=== PATIENT | female | born 1970 | race Caucasian/White ===

== ENCOUNTER 2017-09-11 18:29 | Emergency (ER) | payer OTHER, SELFPAY ==
[2017-09-11 18:36] VITALS: BP 129/82; PULSE 97; RESP 16; TEMP 36.1; O2SAT 98; BMI 42.5
--- NOTE | 2017-09-11 18:39 | DI.RAD.S_ITS ---
PROCEDURE: XR CHEST 2V INDICATIONS: coughing x 3 weeks TECHNIQUE: 2 views of the chest were acquired. COMPARISON: None. FINDINGS: Surgical changes and devices: None. Lungs and pleura: No pleural effusions or pneumothorax. Lungs are clear. Mediastinum: Mediastinal contours are normal. Heart size is normal. Bones and chest wall: No suspicious bony abnormalities. Soft tissues appear unremarkable. IMPRESSION: 1. No acute cardiopulmonary disease. Dictated by: Nixon Orona M.D. on 09/11/2017 at 20:10 Approved by: Nixon Orona M.D. on 09/11/2017 at 20:11
--- NOTE | 2017-09-11 20:05 | ED_ITS ---
HPI - URI/Sore Throat <Loraine Taylor PA-C - Last Filed: 09/11/17 22:27> General Chief Complaint: Upper Respiratory Symptoms Stated Complaint: HEAD COLD, CHEST PRESSURE Time Seen by Provider: 09/11/17 20:03 Source: patient Mode of arrival: ambulatory Limitations: no limitations History of Present Illness HPI Narrative: This generally healthy 47-year-old patient complains of respiratory symptoms for the last few days. She states that initially she thought this was a simple head cold with congestion and sinus pressure, then began to have sore throat and swollen glands in her neck. Today, she states her chest has felt heavy and congestion and she has had a lot of fatigue. This feels like the onset of her previous pneumonia and she has to travel later this week so thought she needed to have this checked out. Her PCP was unable to see her and sent her here. She denies any fever. She denies any dyspnea, wheeze, or chest pain. She states that her cough has been dry. She was exposed to an ill family member last week who had similar symptoms and is being treated for bacterial infection. Related Data Home Medications Medication Instructions Recorded Confirmed amitriptyline 10 mg PO HS #0 04/26/17 Previous Rx's Medication Instructions Recorded meloxicam [Mobic] 7.5 mg PO BIDCC PRN #20 tab 04/26/17 amoxicillin-pot clavulanate 1 tab PO Q12H #20 tab 09/11/17 [Augmentin] Allergies Allergy/AdvReac Type Severity Reaction Status Date / Time No Known Drug Allergies Allergy Verified 09/11/17 20:39 Review of Systems <Loraine Taylor PA-C - Last Filed: 09/11/17 22:27> Review of Systems All systems reviewed & are unremarkable except as noted in HPI and below Exam <ZARIA Vieira Last Filed: 09/11/17 22:27> Initial Vital Signs Initial Vital Signs: Vital Signs Temperature 97.0 F L 09/11/17 18:36 Pulse Rate 97 H 09/11/17 18:36 Respiratory Rate 16 09/11/17 18:36 Blood Pressure 129/82 H 09/11/17 18:36 Pulse Oximetry 98 09/11/17 18:36 GENERAL APPEARANCE: Patient sitting comfortably, in no distress. HEAD: Localized left maxillary tenderness EYES: PERRL, EOMI. EARS: Normal auditory canals, TMS intact with normal light reflexes. ORAL CAVITY: Normal oropharynx. THROAT: Mild erythema, no exudate NECK/THYROID: Neck supple, full range of motion, shoddy anterior cervical lymphadenopathy. LUNGS: Clear to auscultation bilaterally, clear to percussion, no cough on exam. HEART: RRR without murmur, nl S1, S2, no S3 or S4. EXTREMITIES: No edema, no calf tenderness <Gerry Murdock DO - Last Filed: 09/12/17 02:29> Initial Vital Signs Initial Vital Signs: Vital Signs Temperature 97.0 F L 09/11/17 18:36 Pulse Rate 97 H 09/11/17 18:36 Respiratory Rate 16 09/11/17 18:36 Blood Pressure 129/82 H 09/11/17 18:36 Pulse Oximetry 98 09/11/17 18:36 Course <Loraine Taylor PA-C - Last Filed: 09/11/17 22:27> Orders Ordered: ED Orders 09/11/17 18:39 XR chest 2V Stat Discontinued Medications Amoxicillin/Clavulanate Potassium (Augmentin 875-125 Mg) 1 tab PO NOW ONE Stop: 09/11/17 20:38 Last Admin: 09/11/17 20:47 Dose: 1 tab Vital Signs - 8 hr 09/11/17 18:36 09/11/17 20:50 Temperature 97.0 F L Pulse Rate 97 H 96 H Respiratory Rate 16 17 Blood Pressure 129/82 H Blood Pressure [Right Arm] 118/82 H Pulse Oximetry 98 97 <Gerry Murdock DO - Last Filed: 09/12/17 02:29> Orders Ordered: ED Orders 09/11/17 18:39 XR chest 2V Stat Discontinued Medications Amoxicillin/Clavulanate Potassium (Augmentin 875-125 Mg) 1 tab PO NOW ONE Stop: 09/11/17 20:38 Last Admin: 09/11/17 20:47 Dose: 1 tab Vital Signs - 8 hr 09/11/17 18:36 09/11/17 20:50 Temperature 97.0 F L Pulse Rate 97 H 96 H Respiratory Rate 16 17 Blood Pressure 129/82 H Blood Pressure [Right Arm] 118/82 H Pulse Oximetry 98 97 MDM - URI/Sore Throat <Loraine Taylor PA-C - Last Filed: 09/11/17 22:27> Imaging Data Chest x-ray: Radiologist's impression: View Report History [address] [address] XRay Report Signed Patient: Melinda Cheney MR#: [id number] : 1970 Acct:[id number] Age/Sex: 47 / F Date of Service: 09/11/17 Loc: ED Accession Number: [id number] Procedure: XR chest 2V Ordering Provider: Gerry Murdock D.O. PROCEDURE: XR CHEST 2V INDICATIONS: coughing x 3 weeks TECHNIQUE: 2 views of the chest were acquired. COMPARISON: None. FINDINGS: Surgical changes and devices: None. Lungs and pleura: No pleural effusions or pneumothorax. Lungs are clear. Mediastinum: Mediastinal contours are normal. Heart size is normal. Bones and chest wall: No suspicious bony abnormalities. Soft tissues appear unremarkable. IMPRESSION: 1. No acute cardiopulmonary disease. Dictated by: Nixon Orona M.D. on 09/11/2017 at 20:10 Approved by: Nixon Orona M.D. on 09/11/2017 at 20:11 Discharge Plan Departure Patient Disposition: Home, Self-Care Clinical Impression: Sinusitis, acute maxillary Discharge Date/Time: 09/11/17 21:18 Interventions: ED Discharge Assessment Last Done: 09/11/17 21:17 Instructions: DI for Sinusitis Activity Restrictions/Additional Instructions: Return if you have acutely worsening symptoms, and see your PCP if you are not getting better in the next week. You can take Sudafed as needed for congestion and gcni-maj-iobhpkx antihistamine to help with postnasal drip if desired. You may also wish to add some guaifenesin to help thin your chest mucus. 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 I have sent this electronically to your pharmacy Prescriptions: New amoxicillin-pot clavulanate [Augmentin] 875-125 mg tablet 1 tab PO Q12H Qty: 20 RF: 0 No Action amitriptyline 25 MG tablet 10 mg PO HS Qty: 0 RF: 0 meloxicam [Mobic] 7.5 MG tablet 7.5 mg PO BIDCC PRNQty: 20 RF: 0 Referrals: [facility] [Provider Group] <Gerry Murdock, DO - Last Filed: 09/12/17 02:29> Cosign ED Attending Jazmin Attestation: I was immediately available in the department for consultation. Documentation has been reviewed. I agree with assessment and plan.
[2017-09-11] MEDS: AMOXICILLIN/CLAV 875/125 MG 1 TAB PO (20:47)
[2017-09-11 20:50] VITALS: BP 118/82; PULSE 96; RESP 17; O2SAT 97
== END 2017-09-11 21:18 | disposition home or self-care (01) ==
PROVIDERS: Emergency Provider Internal Medicine
DX: J01.00 Acute maxillary sinusitis, unspecified (principal)
CPT/HCPCS: 71046; 99282; 99283

== ENCOUNTER 2018-08-12 20:15 | Emergency (ER) | payer OTHER, SELFPAY ==
[2018-08-12 20:19] VITALS: BP 139/90; PULSE 93; RESP 16; TEMP 37.2; O2SAT 100; BMI 41.8
[2018-08-12 21:38] LABS: Bacteria Urine Many (>30); Culture Indicated Urine Specimen Cultured; RBC Urine 1-5/HPF (0-5/HPF); Squamous Epithelial Cell Urine 1-5 /HPF (0-5/HPF); WBC Urine 30-100/HPF (0-5/HPF)
[2018-08-12 22:56] VITALS: BP 116/67; PULSE 88; RESP 16; TEMP 36.7; O2SAT 97
--- NOTE | 2018-08-12 23:17 | ED_ITS ---
HPI - Female Genitourinary General Chief complaint: Urogenital-Female Stated complaint: UTI Time Seen by Provider: 08/12/18 23:16 Source: patient Mode of arrival: ambulatory Limitations: no limitations History of Present Illness HPI Narrative: Patient is a 48-year-old female who presents with bilateral flank pain. She says it started 5 days ago she thought she had a UTI. Painful frequent urination. She has had some abdominal discomfort some body aches and chills as well. Her flanks are now also hurting. He is afebrile here. Overall able to keep in fluids. MD Complaint: UTI Female Urogenital Radiation: L Flank, R Flank and Suprapubic Related Data Home Medications Medication Instructions Recorded Confirmed amitriptyline 10 mg PO HS #0 04/26/17 Previous Rx's Medication Instructions Recorded meloxicam [Mobic] 7.5 mg PO BIDCC PRN #20 tab 04/26/17 amoxicillin-pot clavulanate 1 tab PO Q12H #20 tab 09/11/17 [Augmentin] sulfamethoxazole-trimethoprim 1 tab PO BID #14 tab 08/12/18 [Bactrim DS] Allergies Allergy/AdvReac Type Severity Reaction Status Date / Time No Known Drug Allergies Allergy Verified 09/11/17 20:39 Review of Systems Review of Systems ROS Unobtainable: All systems reviewed & are unremarkable except as noted in HPI and below Constitutional Denies chills, Denies fever(s), Denies lethargy and Denies weakness Eyes Denies change in vision, Denies eye discharge, Denies irritation and Denies loss of vision ENT Ears, Nose, Mouth, and Throat: Denies change in voice, Denies neck pain and Denies sore throat Cardiovascular Denies chest pain, Denies irregular heart rhythm, Denies lightheadedness, Denies palpitations, Denies dyspnea, Denies dyspnea on exertion and Denies orthopnea Respiratory Denies cough, Denies dyspnea, Denies dyspnea on exertion and Denies wheezing Genitourinary Reports as per HPI Musculoskeletal Denies neck pain Integumentary/Breasts Denies pruritus, Denies erythema, Denies rash and Denies wounds Neurologic Denies confusion, Denies loss of vision and Denies weakness Psychiatric Denies anxiety, Denies confusion, Denies depression, Denies homicidal ideation and Denies suicidal ideation Endocrine Denies palpitations Allergic/Immunologic Denies wheezing PFSH Medical History Healthy female (Chronic) Social History (Updated 09/11/17 @ 20:35 by Loraine Taylor PA-C) Smoking Status: Former smoker substance use type: does not use Social History Smoking Status: Former smoker substance use type: does not use Exam Initial Vital Signs Initial Vital Signs: Vital Signs Temperature 98.9 F 08/12/18 20:19 Pulse Rate 93 H 08/12/18 20:19 Respiratory Rate 16 08/12/18 20:19 Blood Pressure 139/90 08/12/18 20:19 Pulse Oximetry 100 08/12/18 20:19 GENERAL: Well-appearing, well-nourished and in no acute distress. HEENT: Head atraumatic,EOMI, pupils reactive, face symmetric, moist mucous membranes CARDIOVASCULAR: Regular rate and rhythm without murmurs, rubs or gallops. RESPIRATORY: Breath sounds equal bilaterally, no wheezes rales or rhonchi. ABDOMEN: Soft, nontender. Normoactive bowel sounds all 4 quadrants. No guarding or rebound. : Bilateral flank pain EXTREMITIES: Normal range of motion, no clubbing or edema. Neurovascularly intact NEUROLOGICAL: Alert and oriented x4.Normal gait and speech. Cranial nerves II through XII grossly intact. SKIN: Warm, dry, no laceration, no petechiae, no rashes or lesions. Course Orders Ordered: ED Orders 08/12/18 20:20 Urine Culture Stat Urine Microscopic Stat 08/12/18 23:30 Test Urine Stat Discontinued Medications Trimethoprim/Sulfamethoxazole (Bactrim Ds Prepack) 1 bottle MISC SEEINSTR ONE Stop: 08/12/18 23:42 Last Admin: 08/12/18 23:50 Dose: 1 bottle Vital Signs - 8 hr 08/12/18 20:19 08/12/18 22:56 Temperature 98.9 F 98.0 F Pulse Rate 93 H 88 Respiratory Rate 16 16 Blood Pressure 139/90 Blood Pressure [Right Arm] 116/67 Pulse Oximetry 100 97 MDM - Female Genitourinary Lab Data Attestation: I reviewed the patient's lab results. Lab Results 08/12/18 08/12/18 Range/Units 20:20 23:30 Urine RBC 1-5/hpf (0-5/HPF) Urine WBC 30-100/hpf H (0-5/HPF) Ur Squamous Epith Cells 1-5 /hpf (0-5/HPF) Urine Bacteria Many (>30) H (None) Ur Culture Indicated? Specimen cultured Urine Test Negative (Negative) Urine Dip Bedside Urine Glucose Negative Bedside Urine Bilirubin - Negative Bedside Urine Ketone - Negative Urine Specific [place] 1.015 Bedside Urine Occult Blood +/- Bedside Urine pH 6.0 Bedside Urine Protein +/- 15 Bedside Urine Urobilinogen +/- 1mg Bedside Urine Nitrite + Positive Bedside Urine Leukocytes +++ 500 Esterase MDM Narrative Medical decision making narrative: Patient overall is not septic. Looks well. Afebrile normal vitals. At this time start oral antibiotic. Discharge Plan Departure Patient Disposition: Home Clinical Impression: Urinary tract infection Qualifiers: Urinary tract infection type: acute pyelonephritis Qualified Code(s): N10 - Acute pyelonephritis Discharge Date/Time: 08/12/18 23:55 Interventions: ED Discharge Assessment Last Done: 08/12/18 23:50 Instructions: DI for Kidney Infection Activity Restrictions/Additional Instructions: *You have been diagnosed with kidney infection, UTI *What to do: Increased fluid intake *Continue to take medications as directed --> SENT TO [facility] Bactrim 1 tablet twice a day for 7 days *Follow up with your primary care provider in 2-3 days *Return to ER if you should have inability to take antibiotics, worsening pain, persistent nausea or vomiting or any new, worsening or concerning symptoms Prescriptions: New sulfamethoxazole-trimethoprim [Bactrim DS] 800-160 mg tablet 1 tab PO BID Qty: 14 RF: 0 No Action amitriptyline 25 MG tablet 10 mg PO HS Qty: 0 RF: 0 meloxicam [Mobic] 7.5 MG tablet 7.5 mg PO BIDCC PRNQty: 20 RF: 0 amoxicillin-pot clavulanate [Augmentin] 875-125 mg tablet 1 tab PO Q12H Qty: 20 RF: 0 Referrals: Luis Silveira PA-C [Primary Care Provider] -
[2018-08-12 23:35] LABS: Pregnancy Test Urine Negative (Negative)
[2018-08-12] MEDS: TRIMETH/SULFA 160/800 PREPACK 1 BOTTLE MISC (23:50)
== END 2018-08-12 23:55 | disposition home or self-care (01) ==
PROVIDERS: Emergency Provider Emergency Medicine; PCP Physician Assistant
DX: N10 Acute pyelonephritis (principal)
CPT/HCPCS: 81003; 81015; 81025; 87077; 87086; 87186; 99282; 99283

== ENCOUNTER 2019-01-05 09:40 | Emergency (ER) | payer OTHER, SELFPAY ==
[2019-01-05 09:45] VITALS: BP 133/80; PULSE 76; RESP 18; TEMP 37; O2SAT 100; BMI 39.2
--- NOTE | 2019-01-05 09:50 | DI.RAD.S_ITS ---
PROCEDURE: XR FOOT LT MIN 3V INDICATIONS: L dorsal foot pain TECHNIQUE: 3 views of the foot were acquired. COMPARISON: None. FINDINGS: Bones: No fractures or dislocations. No suspicious bony lesions. There is a plantar calcaneal spur. Soft tissues: No tibiotalar joint effusion. Soft tissue swelling on the dorsal aspect of the foot is evident. IMPRESSION: No acute fractures of the left foot. Dictated by: Bernard Nick M.D. on 01/05/2019 at 9:11 Approved by: Bernard Nick M.D. on 01/05/2019 at 9:12
--- NOTE | 2019-01-05 11:18 | ED_ITS ---
HPI - Extremity Problem <HATTIE Argueta - Last Filed: 01/05/19 14:38> General Chief complaint: Extremity Problem,Nontraumatic Stated complaint: Lump on left foot Time Seen by Provider: 01/05/19 11:02 Source: patient Mode of arrival: Ambulatory Limitations: no limitations History of Present Illness HPI Narrative: The patient is a 48-year-old female former smoker with history of obesity who presents for chief complaint of a lump on her left foot. She has noticed this on the top of her foot starting back in August. Used to coming go, now it has been consistent. She complains of pressure, and pain. Worsened by activity, better with rest. She states that the pain radiates down into her toes. She denies any overlying erythema. She has an appointment with Podiatry on the of this month. She has seen her primary care provider for this, who referred her to Podiatry. She denies any specific trauma twisting or falls. She states that is worsened by exercising on the treadmill. She has not tried any other exercise machines. She has tried ibuprofen. The patient states that she is upset that she has to wait until the of this month to see Podiatry, so she came to the emergency department for evaluation prior. Related Data Home Medications Medication Instructions Recorded Confirmed amitriptyline 10 mg PO HS #0 04/26/17 Previous Rx's Medication Instructions Recorded meloxicam [Mobic] 7.5 mg PO BIDCC PRN #20 tab 04/26/17 amoxicillin-pot clavulanate 1 tab PO Q12H #20 tab 09/11/17 [Augmentin] sulfamethoxazole-trimethoprim 1 tab PO BID #14 tab 08/12/18 [Bactrim DS] Allergies Allergy/AdvReac Type Severity Reaction Status Date / Time No Known Drug Allergies Allergy Verified 08/13/18 08:56 Review of Systems <HATTIE Argueta - Last Filed: 01/05/19 14:38> Review of Systems Narrative: GENERAL: Denies chills, fatigue, malaise, fever, sweats. HEENT: Denies sinus pain, ear pain, sore throat, difficulty swallowing, dizziness. RESPIRATORY: Denies dyspnea, cough, wheezing, hemoptysis, sputum. CARDIOVASCULAR: Denies chest pain, palpitations, orthopnea, edema, GASTROINTESTINAL: Denies nausea, vomiting, abdominal pain, diarrhea, constipation, melena. : Denies dysuria, frequency, incontinence, hematuria, urinary retention. MUSCULOSKELETAL: See HPI SKIN: Denies rash, skin lesions, or other NEUROLOGIC: Denies weakness, headache, numbness, change in speech, confusion, seizures, incoordination. PSYCHIATRIC: No concerning psychosocial issues. 12 point review of systems is negative except for those stated above Patient History <HATTIE Argueta - Last Filed: 01/05/19 14:38> Medical History Healthy female (Chronic) Social History Smoking Status: Former smoker substance use type: does not use alcohol intake frequency: 0-2 drinks per day Substance Use Type: does not use Exam <HATTIE Argueta - Last Filed: 01/05/19 14:38> Narrative Exam Narrative: GENERAL: This is a well-nourished, well-developed patient, in no acute distress HEAD: Atraumatic. Normocephalic. No temporal or scalp tenderness. EYES: Pupils equal round and reactive. Extraocular motions intact. No scleral icterus. No injection or drainage. ENT: Nose without bleeding, purulent drainage or septal hematoma. Throat without erythema, tonsillar hypertrophy or exudate. Uvula midline. Airway patent. NECK: Trachea midline. No JVD or lymphadenopathy. Supple, nontender, no meningeal signs. CARDIOVASCULAR: Regular rate and rhythm RESPIRATORY: No cough. No increased respiratory effort. No accessory muscle use. EXTREMITIES: Slight swelling noted on dorsum of left foot over navicular. Positive pedal pulses. Using all toes. Cap refill less than 2 seconds. BACK: Nontender without deformity or crepitance. No flank tenderness. NEURO: AOx3. Clear speech. No gross cranial nerve deficit. SKIN: No rash or erythema on visible skin. No erythema or ecchymosis noted over left foot. Initial Vital Signs Initial Vital Signs: Vital Signs Temperature 98.6 F 01/05/19 09:45 Pulse Rate 76 01/05/19 09:45 Respiratory Rate 18 01/05/19 09:45 Blood Pressure 133/80 11/03/19 09:45 Pulse Oximetry 100 01/05/19 09:45 <Teena Mcguire MD - Last Filed: 01/05/19 17:02> Initial Vital Signs Initial Vital Signs: Vital Signs Temperature 98.6 F 01/05/19 09:45 Pulse Rate 76 01/05/19 09:45 Respiratory Rate 18 01/05/19 09:45 Blood Pressure 133/80 01/05/19 09:45 Pulse Oximetry 100 01/05/19 09:45 Course <HATTIE Argueta - Last Filed: 01/05/19 14:38> Orders Ordered: ED Orders 01/05/19 09:50 XR foot LT min 3V Stat Vital Signs Vital signs: Vital Signs - 8 hr 01/05/19 09:45 01/05/19 11:25 Temperature 98.6 F Pulse Rate 76 67 Respiratory Rate 18 18 Blood Pressure 133/80 130/80 Pulse Oximetry 100 100 <Teena Mcguire MD - Last Filed: 01/05/19 17:02> Orders Ordered: ED Orders 01/05/19 09:50 XR foot LT min 3V Stat Vital Signs Vital signs: Vital Signs - 8 hr 01/05/19 09:45 01/05/19 11:25 Temperature 98.6 F Pulse Rate 76 67 Respiratory Rate 18 18 Blood Pressure 133/80 130/80 Pulse Oximetry 100 100 MDM - Extremity (Nontraumatic) <HATTIE Argueta - Last Filed: 01/05/19 14:38> Imaging Data Foot x-ray: Radiologist's impression: [address] [address] XRay Report Signed Patient: Melinda Cheney [facility]#: [id number] : 1970Acct:[id number] Age/Sex: 48 / FDate of Service: 01/05/19 Loc: ED Accession Number: [id number] Procedure: XR foot LT min 3V Ordering Provider: Teena Mcguire MD PROCEDURE: XR FOOT LT MIN 3V INDICATIONS: L dorsal foot pain TECHNIQUE: 3 views of the foot were acquired. COMPARISON: None. FINDINGS: Bones: No fractures or dislocations. No suspicious bony lesions. There is a plantar calcaneal spur. Soft tissues: No tibiotalar joint effusion. Soft tissue swelling on the dorsal aspect of the foot is evident. IMPRESSION: No acute fractures of the left foot. Dictated by: Bernard Nick M.D. on 01/05/2019 at 9:11 Approved by: Bernadr Nick M.D. on 01/05/2019 at 9:12 MDM Narrative Medical decision making narrative: The patient is a 48-year-old female who p resents with a chief complaint of left foot pain that has been going on and off since August. She has an upcoming appointment with Podiatry, but wanted to make sure that there is no fracture. X-ray illustrate no fracture. She does have some swelling on exam, possibly a cyst. I did offer prescription anti- inflammatories, which she declined. I discussed at length rest ice compression elevation as well as fkwn-[id number] pain medications as needed and able. Suggested possible compression wrap to evaluate if that helps. Encouraged use of lower impact exercise equipment such as stationary bike. Patient has no questions or concerns upon discharge and states understanding of return precautions of acute concerns as well as follow-up care. 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 As I discussed, your x-ray shows no acute fracture. This does not rule out a soft tissue injury such as a ligament or tendon injury. It is important that you follow up with primary care provider, especially if worsening or no improvement. There can be fractures that did not show up on initial x-ray. Please use rest ice compression elevation. I suggest continued [id number]-myx-[id number] medications as needed and able. There is no evidence of bone spur at the location of her pain and swelling Please monitor for decreased circulation to her foot. Please come back to the emergency department for any acute concerns. Prescriptions: No Action amitriptyline 25 MG tablet 10 mg PO HS Qty: 0 RF: 0 meloxicam [Mobic] 7.5 MG tablet 7.5 mg PO BIDCC PRNQty: 20 RF: 0 amoxicillin-pot clavulanate [Augmentin] 875-125 mg tablet 1 tab PO Q12H Qty: 20 RF: 0 sulfamethoxazole-trimethoprim [Bactrim DS] 800-160 mg tablet 1 tab PO BID Qty: 14 RF: 0 Referrals: Luis Silveira PA-C [Primary Care Provider] - [place] Pina DPM [Physician] -
[2019-01-05 11:25] VITALS: BP 130/80; PULSE 67; RESP 18; O2SAT 100
== END 2019-01-05 11:25 | disposition home or self-care (01) ==
PROVIDERS: Emergency Provider Nurse Practitioner Family; PCP Physician Assistant
DX: M79.672 Pain in left foot (principal); E66.9 Obesity, unspecified; Z68.39 Body mass index [BMI] 39.0-39.9, adult
CPT/HCPCS: 73630; 99282; 99283

== ENCOUNTER → 2019-08-08 16:08 | Outpatient (CLI) | payer OTHER, SELFPAY ==
--- NOTE | 2019-08-08 16:11 | DI.MRI.S_ITS ---
PROCEDURE: MR ANKLE LT WO/W CON INDICATIONS: GANGLION,LEFT ANKLE AND FOOT TECHNIQUE: Noncontrast sagittal T1 spin echo and T2 fast spin echo with fat saturation, axial proton density fast spin echo and T2 fast spin echo with fat saturation, axial T1 spin echo with fat saturation, coronal T1 spin echo and T2 fast spin echo with fat saturation through the ankle/hindfoot. Post-contrast axial, coronal, and sagittal T1 spin echo with fat saturation through the ankle/hindfoot. COMPARISON: [facility], CR, XR FOOT 3+ VIEWS LEFT, 04/28/2019, 8:50. FINDINGS: Image quality: There is mildly inhomogeneous fat saturation. Bones and joints: No bone marrow contusions or fractures. No suspicious osseous enhancement. No hindfoot coalitions. There is moderate degeneration of the 2nd tarsometatarsal joint with cartilage thinning, mild osteophytosis, and small foci of subchondral edema. No osteochondral injuries of the talar dome. No pathologic joint effusions. Medial structures: The posterior tibialis, flexor digitorum longus, and flexor hallucis longus tendons are intact. The posterior tibial neurovascular bundle appears normal within the tarsal tunnel, without extrinsic mass effect. The deltoid and spring ligament components appear intact. Lateral structures: The anterior talofibular, calcaneofibular, and posterior talofibular ligaments appear intact. More superiorly, the anterior and posterior tibiofibular ligaments appear intact, as is the intermalleolar ligament. The tibiofibular syndesmosis is normal in width at 2 mm or less. The peroneus longus and brevis tendons demonstrate normal location and morphology. Adjacent bony peroneal tubercle and retrotrochlear prominence are normal in size. The sinus tarsi demonstrates normal fatty signal, without edema, fibrosis, or cyst formation. The calcaneonavicular and calcaneocuboid components of the bifurcate ligament appear intact. The dorsal calcaneocuboid ligament appears intact. Anterior structures: There is a dorsal cutaneous marker in the mid foot between the 1st and 2nd metatarsals. There is mild adjacent subcutaneous edema and enhancement in the area of clinical concern likely representing postsurgical changes. Within this region, there is a small lobulated cystic lesion measuring approximately 0.6 x 0.3 x 0.4 cm between the adjacent dorsal vascular structures. This cyst demonstrates no associated internal enhancement upon contrast administration. The tibialis anterior, extensor hallucis longus, and extensor digitorum longus tendons appear intact. The dorsal talonavicular ligament appears intact. Posterior and plantar structures: Achilles tendon is intact. Medial and lateral bands of the plantar fascia are of normal thickness. No abductor digiti quinti muscle atrophy to suggest Moser neuropathy. IMPRESSION: 1. Small lobulated cyst without definite associated enhancement demonstrated in the surgical bed in the area of clinical concern likely represents a small residual or recurrent ganglion cyst. A postsurgical fluid collection such as a seroma or abscess are in the differential. 2. Mild subcutaneous edema and enhancement in the surgical bed likely represents postsurgical changes and scarring but infection cannot be excluded. Correlation is recommended clinically. Dictated by: Nixon Orona M.D. on 08/11/2019 at 9:25 Approved by: Nixon Orona M.D. on 08/11/2019 at 9:48
== END ==
PROVIDERS: PCP Physician Assistant; Referring Provider Podiatrist; Visit Provider Podiatrist
DX: M67.472 Ganglion, left ankle and foot (principal)
CPT/HCPCS: 73723; A9579

== ENCOUNTER → 2019-11-11 11:21 | Outpatient (CLI) | payer OTHER, SELFPAY ==
[2019-11-12 07:54] LABS: COVID19 Sendout Not Detected (Not Detect)
== END ==
PROVIDERS: PCP Physician Assistant; Visit Provider Nurse Practitioner
DX: Z11.59 Encounter for screening for other viral diseases (principal)
CPT/HCPCS: 87635

== ENCOUNTER 2019-11-14 06:38 | Day surgery (SDC) | payer OTHER, SELFPAY ==
[2019-11-13 08:29] VITALS: BMI 41.0
[2019-11-14 07:10] VITALS: BP 131/90; PULSE 84; RESP 16; TEMP 36.4; O2SAT 97; BMI 43.2
[2019-11-14] MEDS: LACTATED RINGERS 1,000 ML 100 ML IV (07:15)
--- NOTE | 2019-11-14 07:44 | PM.PREOP ---
Pre-operative Note COVID-19 COVID-19 status: Negative Interval Note History & Physical reviewed/Exam performed by Physician: Yes Changes to H&P: No
[2019-11-14] MEDS: CEFAZOLIN 2 GM/100 ML FROZ.PIGGY IV (07:45)
--- NOTE | 2019-11-14 07:45 | PM.OP.1 ---
Operative Date/Time/Diagnoses Date of procedure: 11/14/19 Time of procedure: 07:46 Pre-op diagnosis: Left foot soft tissue mass, suspect recurrent ganglion cyst Post-op diagnosis: same Procedure & Clinicians Procedure: Left foot ganglion cyst excision Same procedure as scheduled: Yes Indications: Painful recurrent enlargement of the dorsal left foot suspected to be a ganglion cyst. Conservative measures failed to alleviate her pain and she wished to have surgical intervention at this time. Surgeon: Hannah Luciano Click Yes if Unassisted: Yes Anesthesia Type: General Operative Notes Closure Type: primary Specimen(s): none sent Prosthetic devices, grafts, tissues, transplants, or devices: Arthrex Amnion Matrix Cord Estimated Blood Loss (mL): 10 Blood products transfused: none Tourniquet time (min): 18 Procedure in detail: The patient was brought to the operative room and placed on the operating table in the supine position. After induction of general anesthesia a tourniquet was placed about her left thigh and the foot and ankle were prepped and draped in usual aseptic manner. Local anesthesia was rendered to the dorsal left foot. After a check of anesthesia, an lazy-S incision was made over the dorsal 2nd interspace of the left foot. The incision was deepened through subcutaneous tissues, being careful to identify and retract all vital neural and vascular structures. All bleeders were cauterized and ligated as necessary. After being careful to identify and avoid the dorsalis pedis artery, just lateral to this the soft tissue enlargement appeared to be consistent with a combination of structures. The majority was an enlargement of the distal muscular aspect of the extensor to the hallux. This muscle was clean and properly striated, but appeared enlarged, with the distal portion of the enlargement being a herniation of a very small ganglion cyst that decompressed upon discovery. This extraneous musculature along with the formerly fluid-filled segment was excised, cauterized. Gentle dissection deepened showing no additional area of ganglion or mass. There was however pointed spurring along the 2nd tarsometatarsal joint and slightly proximal that was felt to be directly in the area of her recurrence, which was gently reduced with a rongeur and manual rasp. The tourniquet was deflated and I verified the location of the tendon next to the artery. I did get a little separation of the two but it seemed fairly adhered in the central aspect and the risk vs benefit of it's attempt at removal was justified to keep it in it's present condition. The area was irrigated with copious amounts of normal sterile saline. The graft was trimmed and placed over the location of the prior soft tissue enlargement. It was sewn in around the edges with 4-0 vicryl, in simple suture technique. This sat nicely. 4-0 Vicryl was used to repair subcutaneous tissues. Skin closure performed using 4-0 nylon. The area was dressed with a lightly compressive sterile dressing including Adaptic, 4x4s, conform, and an JAZ wrapt. She was placed in stockinette and transferred to the PACU with vital signs stable and vascular status intact. Her boot will be placed on her in the PACU. Complications: none Post-operative Condition: stable Disposition: PACU Plan for aftercare: Following a period of postoperative monitoring, the patient be discharged home on written and oral postoperative instructions including keeping the dressing dry and intact, avoiding significant ambulation on the foot (partial ok for transfers and stability, icing and elevating the foot when seated home. DVT prevention techniques have been reviewed. For the 1st postoperative visit the dressing will be a dressing and close to the 3rd postoperative week we will likely remove the sutures.
--- NOTE | 2019-11-14 08:13 | SUR.OPER ---
Supine on padded OR bed, head on pillow, arms secured on padded arm boards at <90 degrees abduction, bump under left hip, left leg under control of surgeon, legs uncrossed, safety belt across abdomen, tape over blanket over right leg.
[2019-11-14] MEDS: BUPIVACAINE 0.5% (PF) VIAL 30 ML INJ (08:25)
[2019-11-14 09:17] VITALS: BP 122/72; PULSE 82; RESP 17; TEMP 36.6; O2SAT 94
[2019-11-14 09:22] VITALS: BP 129/89; PULSE 82; RESP 18; O2SAT 94
[2019-11-14 09:26] VITALS: BP 131/90; PULSE 74; RESP 16; O2SAT 97
[2019-11-14] MEDS: ONDANSETRON 4 MG/2 ML INJ IV (09:30)
[2019-11-14 09:32] VITALS: BP 120/80; PULSE 70; RESP 12; O2SAT 95
[2019-11-14 10:09] VITALS: BP 130/89; PULSE 62; RESP 16; TEMP 35.7; O2SAT 99
== END 2019-11-14 10:17 | disposition home or self-care (01) ==
PROVIDERS: PCP Physician Assistant; Referring Provider Podiatrist; Visit Provider Podiatrist
PROC: (CPT 28090; principal; 2019-11-14 07:45)
DX: M67.472 Ganglion, left ankle and foot (principal); E66.9 Obesity, unspecified; Z68.41 Body mass index [BMI] 40.0-44.9, adult; F32.9 Major depressive disorder, single episode, unspecified
CPT/HCPCS: 28090; J0690; J2250; J2405; J2704; J3010

== ENCOUNTER 2020-01-12 15:33 | Emergency (ER) | payer OTHER, SELFPAY ==
[2020-01-12 15:48] VITALS: BP 137/88; PULSE 76; RESP 16; TEMP 37.1; O2SAT 98; BMI 43.4
--- NOTE | 2020-01-12 15:53 | DI.RAD.S_ITS ---
PROCEDURE: XR FOOT LT MIN 3V INDICATIONS: foot pain TECHNIQUE: 3 views of the foot were acquired. COMPARISON: [facility], CR, XR FOOT LT MIN 3V, 01/05/2019, 9:53. FINDINGS: Bones: No fractures or dislocations. No suspicious bony lesions. Well-defined plantar calcaneal enthesophyte is seen. Soft tissues: No tibiotalar joint effusion. Achilles tendon appears normal. IMPRESSION: No left foot fracture or dislocation. Plantar calcaneal enthesophyte. Dictated by: Ap Charles M.D. on 01/12/2020 at 15:07 Approved by: Ap Charles M.D. on 01/12/2020 at 15:12
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
[2020-01-12 16:50] VITALS: BP 139/78; PULSE 79; RESP 16; O2SAT 98
== END 2020-01-12 16:56 | disposition home or self-care (01) ==
PROVIDERS: Emergency Provider Nurse Practitioner; PCP Physician Assistant
DX: M79.672 Pain in left foot (principal); S90.32XA Contusion of left foot, initial encounter
CPT/HCPCS: 73630; 99281; 99283

== ENCOUNTER → 2021-02-04 12:53 | Outpatient (CLI) | payer OTHER, SELFPAY ==
--- NOTE | 2021-02-04 | DI.MG.S_ITS ---
BILATERAL DIGITAL SCREENING MAMMOGRAM 3D/2D WITH CAD: 02/04/2021 CLINICAL: Routine screening. Comparison is made to exams dated: 08/27/2012 mammogram and 10/28/2013 mammogram - [facility]. There are scattered fibroglandular elements in both breasts. Current study was also evaluated with a Computer Aided Detection (CAD) system. There are new grouped fine calcifications in the right breast anterior depth central to the nipple seen on the craniocaudal view only. No other significant masses, calcifications, or other findings are seen in either breast. IMPRESSION: INCOMPLETE: NEEDS ADDITIONAL IMAGING EVALUATION The new grouped fine calcifications in the right breast are indeterminate. Additional views with possible ultrasound are recommended. This exam was interpreted at Station ID: [id number]. NOTE: For mammograms, a report in lay terms will be sent to the patient. Approximately 15% of breast malignancies will not be visualized mammographically. In the management of a palpable breast mass, a negative mammogram must not discourage biopsy of a clinically suspicious lesion. Electronically Signed By: Angela pichardo/leatha:02/04/2021 17:30:05 letter sent: Additional Imaging Needed ACR BI-RADS Category 0: Incomplete [id number]
== END ==
PROVIDERS: PCP Family Medicine; Referring Provider Family Medicine; Visit Provider Family Medicine
DX: Z12.31 Encounter for screening mammogram for malignant neoplasm of breast (principal)
CPT/HCPCS: 77063; 77067

== ENCOUNTER → 2021-03-18 08:36 | Outpatient (CLI) | payer OTHER, SELFPAY ==
--- NOTE | 2021-03-18 | DI.MG.S_ITS ---
UNILATERAL RIGHT DIGITAL DIAGNOSTIC MAMMOGRAM 3D/2D WITH ADDITIONAL VIEWS: 03/18/2021 CLINICAL: Additional evaluation requested from prior study. Comparison is made to exams dated: 02/04/2021 mammogram - [facility], 10/28/2013 mammogram, and 08/27/2012 mammogram - [facility]. There are scattered fibroglandular elements in right breast. There are new 0.4 cm grouped fine punctate calcifications in the right breast anterior depth central to the nipple seen on the craniocaudal view only. These calcifications appear to localize to the upper quadrant on the prior tomosynthesis and may be seen on the LM tomosynthesis. No other significant masses or calcifications are seen in the breast. IMPRESSION: SUSPICIOUS OF MALIGNANCY The new 0.4 cm grouped fine punctate calcifications in the right breast are at a high suspicion for malignancy. A stereotactic biopsy is recommended. Exam findings were discussed with the patient by Dr. Ruiz. This exam was interpreted at Station ID: [id number]. NOTE: For mammograms, a report in lay terms will be sent to the patient. Approximately 15% of breast malignancies will not be visualized mammographically. In the management of a palpable breast mass, a negative mammogram must not discourage biopsy of a clinically suspicious lesion. Electronically Signed By: Jeff Fraser M.D. [facility]/:03/18/2021 09:14:20 letter sent: Biopsy Required ACR BI-RADS Category 4c: Suspicious abnormality - moderate concern but not classic for malignancy [id number]
== END ==
PROVIDERS: PCP Family Medicine; Referring Provider Family Medicine; Visit Provider Family Medicine
DX: R92.1 Mammographic calcification found on diagnostic imaging of breast (principal)
CPT/HCPCS: 77065; G0279

== ENCOUNTER 2023-04-18 04:56 | Emergency (ER) | payer OTHER, SELFPAY ==
[2023-04-18 05:00] VITALS: BP 136/72; PULSE 75; RESP 20; TEMP 36.6; O2SAT 98; BMI 42.3
[2023-04-18 05:01] VITALS: PULSE 79; O2SAT 99
[2023-04-18 05:02] VITALS: BP 136/72; PULSE 74; O2SAT 100
--- NOTE | 2023-04-18 05:15 | DI.CT.S_ITS ---
PROCEDURE: CT LUMBAR SPINE WO CON INDICATIONS: WORSENING R LUMBAR PAIN TECHNIQUE: Noncontrast 3 mm thick sections acquired from the T12 level to the sacrum. Sagittal and coronal reformats were constructed. For radiation dose reduction, the following was used: automated exposure control. COMPARISON: None. FINDINGS: Image quality: Excellent. Bones: There is normal bony alignment. No acute vertebral body compression fractures. No suspicious lytic or blastic bony lesions. No pars defects. T12-L1: Unremarkable. L1-L2: Mild degenerative endplate changes are seen. No significant disc bulge, canal stenosis or neural foraminal narrowing. L2-L3: Mild degenerative endplate changes are seen. No significant disc bulge, canal stenosis or neural foraminal narrowing. L3-L4: Degenerative endplate changes are seen. Mild broad-based disc bulge is seen with slight phase mint of the cul sac anteriorly. Mild right-sided neural foraminal narrowing is seen. L4-L5: Broad-based disc bulge and bilateral facet arthrosis is seen with mild central canal stenosis and mild to moderate bilateral neural foraminal narrowing. L5-S1: Degenerative endplate changes are seen. Diffuse disc bulge and bilateral facet arthrosis is noted with mild central canal stenosis and mild bilateral neural foraminal narrowing. Soft tissues: No retroperitoneal masses or hematomas. Visualized aorta is normal in caliber. Bulky appearing uterus is seen. IMPRESSION: 1. 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 2. No acute compression fracture or spondylolisthesis. 3. Suggestion of uterine fibroids. Ultrasound of pelvis can be done for further evaluation if clinically indicated. No significant discrepancies from preliminary reading. Dictated by: Ap Charles M.D. on 04/18/2023 at 8:32 Approved by: Ap Charles M.D. on 04/18/2023 at 8:35
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
[2023-04-18] MEDS: LIDOCAINE 5% PATCH 1 EACH TOP (05:26)
[2023-04-18] MEDS: CYCLOBENZAPRINE 10 MG TABLET PO (05:27)
[2023-04-18] MEDS: ACETAMINOPHEN IV 1,000 MG/100 ML VIAL 400 MG IV (05:50)
[2023-04-18] MEDS: DEXAMETHASONE 10 MG/ML VIAL IV (05:50)
[2023-04-18] MEDS: KETOROLAC 30 MG/ML VIAL 15 MG IV (05:51)
[2023-04-18 06:05] VITALS: O2SAT 98
[2023-04-18 06:06] VITALS: BP 113/57; PULSE 71; O2SAT 97
[2023-04-18 06:30] VITALS: BP 104/55; PULSE 69; RESP 17; O2SAT 96
== END 2023-04-18 06:46 | disposition home or self-care (01) ==
PROVIDERS: Emergency Provider Emergency Medicine; PCP Family Medicine
DX: M54.16 Radiculopathy, lumbar region (principal)
CPT/HCPCS: 72131; 96365; 96375; 99284; J0136; J1100; J1885